=== PATIENT | female | born 1985 | race African-American/Black ===

== ENCOUNTER 2022-08-07 18:35 | Emergency (ER) | payer MEDICAID ==
[~2022-08-07] VITALS: Ht 165.1 cm; Wt 57.0 kg
[2022-08-07 18:40] VITALS: BP 106/65
[2022-08-07] MEDS ORDERED: TOPUD PO (23:57)
== END 2022-08-08 00:05 | disposition home or self-care (01) ==
LOC: ER 18:35
DX: L91.8 Other hypertrophic disorders of the skin (principal); F41.9 Anxiety disorder, unspecified; Z98.890 Other specified postprocedural states
CPT/HCPCS: 99281